=== PATIENT | male | born 1960 | race Caucasian/White ===

== ENCOUNTER 2024-05-23 18:16 | Inpatient (IN) | payer OTHER, SELFPAY ==
[2024-05-23] VITALS (9 sets, daily range): BP systolic 116–150; BP diastolic 71–90; BMI 27.1
[2024-05-23 16:19] LABS: % Basophils 0.7 % (0-2); % Immature Granulocytes 0.7 % (0-0.5); % Monocytes 7.3 % (1.7-9.3); % Neutrophils 67.3 % (42.2-75.2); Absolute Basophils 0.1 10^3/uL (0-0.2); Absolute Eosinophils 0.4 10^3/uL (0-0.7); Absolute Immature Granulocytes 0.1 10^3/uL (0-0.05); Absolute Lymphocytes 2.6 10^3/uL (1.2-3.4); Absolute Monocytes 0.9 10^3/uL (0.1-0.6); Absolute Neutrophils 8.3 10^3/uL (1.4-6.5); Hemoglobin 17.5 g/dL (13.0-18.0); Mean Corp Hgb Conc. 34.3 g/dL (33.0-37.0); Mean Platelet Volume 9.9 fL (7.4-10.4); Nucleated Red Blood Cells % 0 % (-); Platelet Count 186 10^3/uL (130-400); Red Blood Cell Count 5.31 10^6/uL (4.70-6.10); Red Cell Dist. Width 12.9 % (11.5-14.5); White Blood Cell Count 12.3 10^3/uL (4.8-10.8)
--- NOTE | 2024-05-23 16:20 | ED.GENMED ---
History of Present Illness
General
Chief Complaint: AICD Problem
Source: patient, physician and previous hospital records
Exam Limitations: none
Time Seen by Provider: 05/23/24 16:01
Nursing documentation reviewed up to this point in time: agreed with
History of Present Illness
History of Present Illness:
59 male AICD followed by Dr. Wu apparently had a shock this morning was feeling well cardiology called me prior to arrival to be expecting him there is concerned that his device wires may not be functioning appropriately, he has no chest pain
no shortness of breath, did have a change in his diabetes meds recently said no nausea vomiting or diarrhea
Past History
Past History
ED Past Medical History: Arrthythmia, HTN and NIDDM
ED Past Surgical History: Cardiac
Social History
Tobacco: Smoker
Alcohol: None
Drug: None
Personal:
Living: with family
Employment: Employed
Review of Systems
Review of Systems
All Other Systems: Not applicable
Constitutional: Denies fever
EENT: Reports no symptoms
Respiratory: Reports no symptoms
Cardiac: Reports no symptoms
ABD/GI: Reports no symptoms
: Reports no symptoms
Phy Exam
Physical Exam
Physical Exam:
Physical Exam
General: no apparent distress, not acutely ill
Neck: No jaundice
Heart: s1/s2 regular rate and rhythm, no murmur. equal radial pulses.
Lungs: no acute respiratory distress. Faint expiratory wheeze
Abdomen: Not tender
Neuro: alert and oriented. no focal neurological deficits
Skin: no rash
Psychiatric: well kept. interactive and cooperative
Extremities: no edema.
Course
Orders/Labs/Results
Orders:
Orders
05/23/24 15:40
ECG [Electrocardiogram (*1)] Urgent
Reason for Study: Abnormal EKG
Other Reason for Exam: AICD fired
05/23/24 15:41
EKG- Treatment ONCE
05/23/24 16:01
CR Chest - 2 Views Urgent
Comment:
Reason For Exam: aicd shock
05/23/24 16:12
Complete Blood Count/With Diff Urgent
Comprehensive Metabolic Panel Urgent
Magnesium Urgent
PTT Urgent
Prothrombin Time Urgent
TSH Urgent
Abnormal Lab Results
05/23/24
16:12
WBC 12.3 H 10^3/uL
(4.8-10.8)
MCV 96.0 H fL
(80.0-94.0)
MCH 33.0 H pg
(27.0-31.0)
Abs Immat Gran (auto) 0.1 H 10^3/uL
(0-0.05)
Absolute Neuts (auto) 8.3 H 10^3/uL
(1.4-6.5)
Absolute Monos (auto) 0.9 H 10^3/uL
(0.1-0.6)
Immature Gran % 0.7 H %
(0-0.5)
Glucose 220 H mg/dl
(70-99)
05/23/24 16:12
05/23/24 16:12
Vital Signs
Initial and Last Documented VS:
Initial Vital Signs
Temp Pulse Resp Pulse Ox
98.6 F 84 20 95
05/23/24 15:48 05/23/24 15:48 05/23/24 15:48 05/23/24 15:48
Last Documented Vital Signs
Temp Pulse Resp BP Pulse Ox
98.6 F 77 18 133/72 96
05/23/24 15:48 05/23/24 16:15 05/23/24 16:15 05/23/24 15:54 05/23/24 16:15
MDM/Problems Addressed
Differential Diagnosis Includes:
Arrhythmia lead fracture malfunctioning device electrolyte abdomen
MDM/Problems Addressed:
AICD
Chronic conditions affecting care: DM, Cardiomyopathy and Arrhythmia
Acute Exacerbation and/or Progression of Chronic Illness: DM, Cardiomyopathy and Arrhythmia
*Radiology
Radiology exam reviewed: preliminary read by ED provider
*Pulse Oximetry
Patient hypoxic: no
*EKG
Interpreted by ED Provider?: Yes
Interpretation: abnormal
Comparison EKG: no comparison EKG present
Heart Rate: 78
Rate: normal
Rhythm: sinus
Ischemia: non-specific ST changes
*Tufting Machine Fixer Interpretation
Rate: normal
Interpretation: normal
Heart Rate: 78
Rhythm: sinus
*Critical Care Note
Total Time (30-74mins, 75-104mins- exclusive of procedures): Not Applicable
Update Note
Update Note:
Update labs are noted device was interrogated and turned off by device rep chest x-ray pending
ED Attending Note
-
Portions of this chart may have been created with voice recognition software.� Occasional wrong word or��sound alike� substitutions may have occurred due to the inherent limitations of voice recognition software.
Discharge Plan
Departure
Patient Disposition: Admit
Date of Disposition: 05/23/24
Time of Disposition: 17:07
Admit to: Telemetry
Presentation/result/management discussed w/ accepting MD/DO: Hospitalist
Patient with high blood pressure during this ER visit?: No
Condition: Good
Discharge Problem:
Failure of implantable cardioverter-defibrillator lead
Prescriptions:
No Action
atorvastatin 40 MG tablet
40 mg PO QPM
insulin glargine [Lantus U-100 Insulin] 100 UNITS/1 ML solution
42 units SC HS
famotidine 40 MG tablet
40 mg PO DAILY
spironolactone 25 MG tablet
25 mg PO QPM
aspirin 81 MG tablet,chewable
81 mg PO DAILY
lisinopril 2.5 MG tablet
5 mg PO DAILY
ibuprofen [Advil Liqui-Gel] 200 MG capsule
200 mg PO Q6HPRN PRN (Reason: pain)
metoprolol succinate 25 MG tablet extended release 24 hr
75 mg PO DAILY
sitagliptin phosphate [Januvia] 100 MG tablet
100 mg PO DAILY
empagliflozin [Jardiance] 25 MG tablet
25 mg PO DAILY
Referrals:
Jason Patel DO [Family Provider] -
Interventions
Interventions:
*Risk Screen - Suicide Last Done: 05/23/24 15:48
*General Assessment Last Done: 05/23/24 15:48
*Neglect/Abuse Screening Last Done: 05/23/24 15:48
ED- Fall Risk Assessment Last Done: 05/23/24 16:05
*ED COVID-19 Vaccine History Last Done: 05/23/24 16:06
ED- Cardiac Assessment Last Done: 05/23/24 16:05
Discharge Date and Time
Print Language: NORTHER[place] IRISH
[2024-05-23 16:29] LABS: PT 12.5 Sec (11.4-14.6)
[2024-05-23 16:30] LABS: APTT 27.9 Sec (23.4-35.0)
[2024-05-23 16:34] LABS: ALT (SGPT) 26 U/L (0-50); AST (SGOT) 20 U/L (17-59); Albumin 4.6 g/dl (3.5-5.0); Alkaline Phosphatase 70 U/L (38-126); Blood Urea Nitrogen 15 mg/dl (9-20); Calcium 9.7 mg/dl (8.4-10.2); Carbon Dioxide 28 mmol/L (22-30); Chloride 101 mmol/L (98-107); Estimated Creatinine Clearance 88 ml/min; Glucose 220 mg/dl (70-99); Magnesium 2.1 mg/dl (1.6-2.3); Potassium 4.4 mmol/L (3.5-5.1); Sodium 137 mmol/L (135-145); Total Bilirubin 0.7 mg/dl (0.2-1.3); Total Protein 7.1 g/dl (6.3-8.2); eGFR > 60.00
--- NOTE | 2024-05-23 17:17 | HPS.HSE ---
Family Physician
-
Family Physician: Jason Patel,
Chief Complaint
-
AICD shock
History of Present Illness
59-year-old male with ischemic cardiomyopathy (LVEF 30%) due to obstructive CAD s/p PCI of LCx with other multivessel disease not amenable to PCI or CABG, HTN, NIDDM, s/p AICD that is presenting to the ED today after a shock from his AICD. Per
cardiology there is concern the device leads may not be functioning properly. Patient denied any other symptoms including chest pain, dyspnea, nausea/vomiting/diarrhea, fevers or chills, paresthesias or weakness, bleeding or bruising. Was told by
cardiology to go to the emergency department for further evaluation. Upon arrival AFVSS. ED labs showed WBC 12.3, glucose 220 but otherwise was unremarkable. ECG showed normal sinus rhythm without acute ST or T wave abnormality. Cardiology with
suspicion for AICD lead fracture.
Medical History
Past Medical History
Past Medical History: Reports CAD, CHF, HTN and NIDDM
Past Surgical History: Reports Cardiac (LCx PCI)
Social History
Tobacco: Smoker
Alcohol: None
Drug: None
Family History
Family History: Other (Denies FHx of early CHF or CAD)
Allergies / Home Medications
Allergies reflects when Allergies were last updated in [facility].
Home Medications with original date entered in [facility]
Allergy/Medication List:
Allergies
Allergy/AdvReac Type Severity Reaction Status Date / Time
No Known Allergies Allergy Verified 05/23/24 15:52
Home Medications
aspirin 81 mg chewable tablet 81 mg PO DAILY 12/27/11
atorvastatin 40 mg tablet 40 mg PO QPM 12/27/11
famotidine 40 mg tablet 40 mg PO DAILY 12/27/11
insulin glargine 100 unit/mL subcutaneous solution (Lantus U-100 Insulin) 42 units SC HS 12/27/11
lisinopril 2.5 mg tablet 5 mg PO DAILY 12/27/11
spironolactone 25 mg tablet 25 mg PO QPM 12/27/11
empagliflozin 25 mg tablet (Jardiance) 25 mg PO DAILY 07/06/20
ibuprofen 200 mg capsule (Advil Liqui-Gel) 200 mg PO Q6HPRN PRN pain 07/06/20
metoprolol succinate 25 mg tablet,extended release 24 hr 75 mg PO DAILY 07/06/20
sitagliptin phosphate 100 mg tablet (Januvia) 100 mg PO DAILY 07/06/20
Review of Systems
-
History Source: Patient
A 12 point ROS was completed and negative except as noted: Yes
Constitutional: Reports No Symptoms
EENT: Reports No Symptoms
Respiratory: Reports No Symptoms
Cardiac: Reports No Symptoms
Abdomen/GI: Reports No Symptoms
: Reports No Symptoms
Musculoskeletal: Reports No Symptoms
Skin: Reports No Symptoms
Neurological: Reports No Symptoms
Endocrine: Reports No Symptoms
Hematologic/Lymphatic: Reports No Symptoms
Psych: Reports No Symptoms
Physical Exam
Vital Signs
Vital Signs
Temp Pulse Resp BP Pulse Ox
98.6 F 77 18 133/72 96
05/23/24 15:48 05/23/24 16:15 05/23/24 16:15 05/23/24 15:54 05/23/24 16:15
Physical Exam
General: Well Developed, Well Nourished, No Apparent Distress and Comfortable
HEENT: NormoCephalic, Anicteric, Moist mucous membranes, Atraumatic and PERRLA
Respiratory: Clear and Non Labored Respirations; No Wheezes, Rales or Rhonchi
Cardiac: S1/S2 and Regular Rhythm; No Murmur, Rub, Gallop, Peripheral Edema or JVD
GI: Soft, Non Tender, Non Distended and Normal Bowel Sounds
Musculoskeletal: No Clubbing and No Cyanosis
Skin: Warm and Dry; No Rash
Neuro: AO x 3 and Nonfocal/grossly intact
Psych: Calm
Laboratory Results
-
05/23/24 16:12
05/23/24 16:12
Laboratory Results
PT 12.5 Sec (11.4-14.6) 05/23/24 16:12
INR 0.90 05/23/24 16:12
APTT 27.9 Sec (23.4-35.0) 05/23/24 16:12
Total Bilirubin 0.7 mg/dl (0.2-1.3) 05/23/24 16:12
AST 20 U/L (17-59) 05/23/24 16:12
ALT 26 U/L (0-50) 05/23/24 16:12
Alkaline Phosphatase 70 U/L (38-126) 05/23/24 16:12
Data Reviewed
-
Lab Data: Labs Reviewed by me, Discussed with Physician (Cardiology) and Discussed with Patient
Impression/Plan
-
#Inappropriate AICD shock
#Suspicion for fractured lead of AICD
-Will underlying rhythms that would necessitate AICD discharge, such as VT/VF
-Cardiology reviewed tracings, suspicion for lead fracture as etiology for inappropriate shock
-Upon arrival no significant metabolic abnormalities that would be contributing
-Will admit to IVU, cardiology/electrophysiology consulted
-Device was turned off by retail service technician, monitor on telemetry for now
-Maintain ZOLL pads for now
-Order CXR, follow-up TSH
#Leukocytosis
-Unclear cause, likely reactive from AICD discharge
-No fevers, no other obvious infectious etiology
-Monitor for fevers, follow-up CXR
-No indication for antibiotics as of now
-Trend CBC and monitor vitals
#HFrEF
#CAD s/p LCx PCI
#Multivessel CAD not amenable to PCI or CABG
-Ischemic cardiomyopathy with most recent LVEF 30%
-Home GDMT includes ASA, statin, ACEi, MRA, beta-daphney, SGLT2i
-Mechanical GDMT with AICD for persistent LVEF <35%
-Not currently on any standing loop diuretic regimen
-Appears euvolemic as of now
#IDDM with hyperglycemia
-No recent A1c on file, Home medications include Lantus 42 units nightly, sitagliptin and empagliflozin
-No known microvascular complications; suspect CAD history is related
-Will continue home medications and add ISS with Accu-Cheks
-Blood glucose goal 100-200, avoid hypoglycemia
#Hypertension
-Home medications include GDMT for heart failure as above
-No known hypertensive systemic disease
-May be related with CAD history
DVT prophylaxis: Subcutaneous heparin
Diet: Low-cholesterol
CODE STATUS: Full code
Disposition: IVU
[2024-05-23 17:25] LABS: TSH 0.46 uIU/ml (0.47-4.68)
[2024-05-23 22:11] LABS: Troponin I 0.054 ng/ml
[2024-05-23] MEDS: LIPITOR 40 MG PO (22:51)
[2024-05-23] MEDS: ALDACTONE 25 MG PO (22:51)
[2024-05-23 22:57] LABS: Glucose - Point of Care 230 mg/dl (70-99)
[2024-05-23] MEDS: LANTUS 0.3 UNITS SC (23:25)
[2024-05-23] MEDS: HEPARIN 5000 UNITS SC (23:29)
--- NOTE | 2024-05-24 01:39 | PTCARENOTE ---
Received pt from ED. SR on the monitor, HR in the 70s. VSS. Pacer pads on pt as per order. Notified SEPARATOR TENDER of elevated troponin level. No complaints from pt at this time, call looney within reach.
[2024-05-24 04:27] VITALS: BP 140/70
[2024-05-24 04:54] LABS: % Basophils 0.7 % (0-2); % Eosinophils 4.4 % (0-6); % Immature Granulocytes 0.7 % (0-0.5); % Lymphocytes 28.2 % (20.5-51.1); % Monocytes 9.1 % (1.7-9.3); % Neutrophils 56.9 % (42.2-75.2); Absolute Basophils 0.1 10^3/uL (0-0.2); Absolute Eosinophils 0.6 10^3/uL (0-0.7); Absolute Immature Granulocytes 0.1 10^3/uL (0-0.05); Absolute Lymphocytes 3.8 10^3/uL (1.2-3.4); Absolute Monocytes 1.2 10^3/uL (0.1-0.6); Absolute Neutrophils 7.6 10^3/uL (1.4-6.5); Hemoglobin 17.3 g/dL (13.0-18.0); Mean Corp Hgb Conc. 34.6 g/dL (33.0-37.0); Mean Corpuscular Hgb 33.4 pg (27.0-31.0); Mean Corpuscular Volume 96.5 fL (80.0-94.0); Mean Platelet Volume 10.3 fL (7.4-10.4); Nucleated Red Blood Cells % 0 % (-); Platelet Count 176 10^3/uL (130-400); Red Blood Cell Count 5.18 10^6/uL (4.70-6.10); White Blood Cell Count 13.4 10^3/uL (4.8-10.8)
[2024-05-24 05:18] LABS: Blood Urea Nitrogen 16 mg/dl (9-20); Calcium 9.6 mg/dl (8.4-10.2); Carbon Dioxide 20 mmol/L (22-30); Chloride 105 mmol/L (98-107); Estimated Creatinine Clearance 99 ml/min; Glucose 147 mg/dl (70-99); Magnesium 2.2 mg/dl (1.6-2.3); Potassium 4.5 mmol/L (3.5-5.1); Sodium 137 mmol/L (135-145); eGFR > 60.00
[2024-05-24 05:21] LABS: Troponin I 0.031 ng/ml
[2024-05-24 06:00] VITALS: BMI 26.8
[2024-05-24 07:56] VITALS: BP 142/83
[2024-05-24 08:42] LABS: Glucose - Point of Care 126 mg/dl (70-99)
[2024-05-24] MEDS: LOW STRENGTH ASPIRIN 81 MG PO (09:00)
[2024-05-24] MEDS: HEPARIN 5000 UNITS SC ×3 (09:00→22:27)
[2024-05-24] MEDS: TOPROL XL 75 MG PO (09:00)
[2024-05-24] MEDS: PEPCID 40 MG PO (09:00)
[2024-05-24] MEDS: ZESTRIL 5 MG PO (09:01)
[2024-05-24] MEDS: GLUCOTROL 10 MG PO ×2 (09:01→17:56)
[2024-05-24] MEDS: FARXIGA 25 MG PO (09:04)
--- NOTE | 2024-05-24 10:50 | W.PN.HOSP.TC ---
Today's Communication/Plan
-
Maintain ZOLL pads
Repair/replacement of AICD per cardiology
Telemetry
Assessment / Plan
Assessment / Plan
#Inappropriate AICD shock
#Suspicion for fractured lead of AICD
-Will underlying rhythms that would necessitate AICD discharge, such as VT/VF
-Cardiology reviewed tracings, suspicion for lead fracture as etiology for inappropriate shock
-Upon arrival no significant metabolic abnormalities that would be contributing
-Will admit to IVU, cardiology/electrophysiology consulted
-Device was turned off by maintenance technician 2nd shift, monitor on telemetry for now
-Maintain ZOLL pads for now
-Order CXR, follow-up TSH
-Will need repair versus replacement of a AICD
#Leukocytosis
-Unclear cause, likely reactive from AICD discharge
-No fevers, no other obvious infectious etiology
-Monitor for fevers, follow-up CXR
-No indication for antibiotics as of now
-Trend CBC and monitor vitals
#HFrEF
#CAD s/p LCx PCI
#Multivessel CAD not amenable to PCI or CABG
-Ischemic cardiomyopathy with most recent LVEF 30%
-Home GDMT includes ASA, statin, ACEi, MRA, beta-daphney, SGLT2i
-Mechanical GDMT with AICD for persistent LVEF <35%
-Not currently on any standing loop diuretic regimen
-Appears euvolemic as of now
#IDDM with hyperglycemia
-No recent A1c on file, Home medications include Lantus 42 units nightly, sitagliptin and empagliflozin
-No known microvascular complications; suspect CAD history is related
-Will continue home medications and add ISS with Accu-Cheks
-Blood glucose goal 100-200, avoid hypoglycemia
#Hypertension
-Home medications include GDMT for heart failure as above
-No known hypertensive systemic disease
-May be related with CAD history
DVT prophylaxis: Subcutaneous heparin
Diet: Low-cholesterol
CODE STATUS: Full code
Anticipated Discharge: 24 - 48 hours
Subjective/Interval History
-
Date of Service: May 24, 2024
Seen and examined at bedside. No acute events reported overnight. No acute events per telemetry. AFVSS this morning.
Labs stable, remains with mild leukocytosis. No fevers overnight.
Denies any acute complaints
Objective Data
-
Labs:
Laboratory Results
05/24/24
04:35
WBC 13.4 H
Hgb 17.3
Hct 50.0
Plt Count 176
Sodium 137
Potassium 4.5
Chloride 105
Carbon Dioxide 20 L
BUN 16
Creatinine 0.8
Glucose 147 H
Calcium 9.6
Vital Signs:
Vital Signs
Temp Pulse Resp BP Pulse Ox
98.3 F 78 20 142/83 96
05/24/24 07:54 05/24/24 09:00 05/24/24 07:54 05/24/24 09:00 05/24/24 07:54
Review of Systems
-
History Source: Patient
All other systems: Reviewed and negative
Physical Exam
-
General: Well Developed, Well Nourished, No Apparent Distress and Comfortable
HEENT: Normocephalic, Atraumatic, Moist Mucous Membranes and Anicteric
Respiratory: Clear to Auscultation and Non Labored Respirations
Cardiac: Regular Rhythm and S1/S2; Negative Murmur, Rub, JVD or Gallop
GI: Soft, Nontender, Nondistended and Normal Bowel Sounds
Musculoskeletal: No Clubbing, No Cyanosis, No Edema and Normal Gait & Station
Skin: Warm, Dry and Normal Turgor; Negative Rash
Neuro: AO x 3 and Nonfocal/Grossly Intact
Psych: Calm
Data Reviewed
-
Diagnostic Radiology: Discussed with Physician (Employee Communications Coordinator)
Labs: Labs Reviewed by me and Discussed with Patient
[2024-05-24 11:12] VITALS: BP 102/77
[2024-05-24 13:10] LABS: Glucose - Point of Care 101 mg/dl (70-99)
[2024-05-24 15:34] VITALS: BP 107/71
--- NOTE | 2024-05-24 16:50 | PTCARENOTE ---
pt continues to be sr on the monitor, hr in the 70s, vss. pt offers no complaints at this time. pt educated on plan of care and pt verbalized understanding. call looney within reach.
[2024-05-24 17:35] LABS: Glucose - Point of Care 135 mg/dl (70-99)
[2024-05-24] MEDS: ALDACTONE 25 MG PO (17:56)
[2024-05-24] MEDS: LIPITOR 40 MG PO (17:56)
--- NOTE | 2024-05-24 18:14 | CON.CAR ---
Consultation
Consultation Request
Requesting Provider: Rodrick
Performing Provider: Consuelo
Reason for Consultation: ICD Shock
Medical History
-
Chief Complaint: ICD Shock
History of Present Illness:
Patient is a very pleasant 63-year-old male with a past medical history significant for diabetes mellitus type 2, CAD status post PCI 2011, ischemic cardiomyopathy (with recovered EF) status post single-chamber Biotronik ICD implant 2011 with
generator change June 2020 who presents following ICD shock. In review of patient's device interrogation by [employer], patient was noted to have significant noise on RV lead leading to inappropriate shock. In emergency department, device was
interrogated remotely and tacky therapies were discontinued. Patient performed isometric and motion exercises with the left arm and when arm was raised, noise was reproduced. In discussion with patient, he reports that he was in otherwise good
state of health. Patient denies any episodes of chest pain, shortness of breath, palpitations, lightheadedness, dizziness, near-syncope, syncope, PND, orthopnea, edema, weakness. Patient has not received an appropriate device therapy from his
device. No reported tachyarrhythmias from device interrogation.
Past Medical History
Past Medical History: Other (See HPI)
Past Surgical History: Other (See HPI)
Social History
Tobacco: Smoker
Alcohol: Occasional
Drug: None
Family History
Family History: Reviewed & Not Pertinent
Allergies / Home Medications
Allergy/AdvReac Type Severity Reaction Status Date / Time
No Known Allergies Allergy Verified 05/23/24 15:52
�Medication �Instructions �Recorded �Confirmed �Type
aspirin 81 mg chewable tablet 81 mg PO DAILY 12/27/11 05/23/24 History
atorvastatin 40 mg tablet 40 mg PO QPM 12/27/11 05/23/24 History
famotidine 40 mg tablet 40 mg PO DAILY 12/27/11 05/23/24 History
insulin glargine 100 unit/mL 30 units SC HS 12/27/11 05/23/24 History
subcutaneous solution (Lantus
U-100 Insulin)
lisinopril 2.5 mg tablet 5 mg PO DAILY 12/27/11 05/23/24 History
spironolactone 25 mg tablet 25 mg PO QPM 12/27/11 05/23/24 History
empagliflozin 25 mg tablet 25 mg PO DAILY 07/06/20 05/23/24 History
(Jardiance)
ibuprofen 200 mg capsule (Advil 200 mg PO Q6HPRN PRN pain 07/06/20 05/23/24 History
Liqui-Gel)
metoprolol succinate 25 mg 75 mg PO DAILY 07/06/20 05/23/24 History
tablet,extended release 24 hr
glipizide 10 mg tablet 10 mg PO BID@0800,1700 05/23/24 05/23/24 History
Review of Systems
-
History Source: Patient
All other systems: Negative unless noted
Constitutional: No Symptoms
EENT: No Symptoms
Respiratory: No Symptoms
Cardiac: No Symptoms
Abdomen/GI: No Symptoms
: No Symptoms
Musculoskeletal: No Symptoms
Skin: No Symptoms
Neurological: No Symptoms
Endocrine: No Symptoms
Hematologic/Lymphatic: No Symptoms
Physical Exam
Vital Signs
Temp Pulse Resp BP Pulse Ox
97.3 F 87 20 107/71 97
05/24/24 15:31 05/24/24 17:56 05/24/24 15:31 05/24/24 17:56 05/24/24 15:31
physical exam:
GENERAL: no acute distress
EYE: sclera anicteric
NECK: Supple, no JVD, no carotid bruit appreciated
ENT: normal nose, moist mucosal membranes
CARDIAC: Regular rate and rhythm, +S1/S2, no murmur, rubs, or gallops; left CIED site well-healed no erythema, redness, warmth, swelling
CHEST/PULMONARY: Normal effort, clear breath sounds
ABDOMEN: Soft, without focal tenderness or distention
NEUROLOGICAL: Alert and oriented x3
SKIN: Warm and dry, no rash
PSYCH: Normal and appropriate interaction.
Lab Results
05/24/24 04:35
05/24/24 04:35
Troponin I 0.031 ng/ml D 05/24/24 04:35
Impression / Plan
-
PCP: Jason Patel DO
Cardiology: Darinel Wu MD
Assessment:
ICD shock, inappropriate
� Noted lead noise prior to device therapy
� Lead impedance greater than 3000
� Reproduced with arm motion; no reported trauma, significant activity or exertion
ICM status post single-chamber ICD 2011
� Biotronik Ilivia 7 VR-T (implant 2020) with Linox DF1 Lead (8 Fr, dual coil; implant 2011)
� No prior device therapies or ventricular arrhythmias reported
� Prior EF 30%, recent echocardiogram from primary director of photography reports EF 50%, basal/mid inferior wall, basal/mid inferolateral wall, basal inferoseptal segment and apex abnormal wall motion
CAD status post PCI
Diabetes mellitus type 2
Hypertension
TTE 06/11/2023: EF 50%, concentric remodeling LV, normal RV size and function, no significant valvular disease, basal/mid inferior wall, basal/mid inferolateral wall, basal inferoseptal segment, and apex are abnormal
Recommendations:
� Device tachytherapies turned off remotely in emergency department, ZOLL pads placed on patient.
� Continue current medical therapy with aspirin, statin, LETICIA, Aldactone, Jardiance, beta-daphney
� Given that patient has ischemic cardiomyopathy despite recovered EF but known regional wall motion abnormality along with relatively young age, I believe patient would benefit from extraction and reimplantation. I discussed this with patient's
primary director of photography, Dr. Wu, who agreed with this plan. With this in mind, we will plan to fit patient with wearable defibrillator (LifeVest) with plan for evaluation on extraction and reimplantation. Will refer patient to my colleague
Terrell for evaluation.
� Monitor on telemetry, replete electrolytes
Data Reviewed
-
EKG: Tracing Personally Visualized and interpreted
Radiology: Image Personally Visualized and interpreted and Report Reviewed by me
Medical Tests (Nuc Med, Echo etc): Report Reviewed by me
Labs: Labs Reviewed by me
Old Records: Reviewed
[2024-05-24 19:42] VITALS: BP 107/70
[2024-05-24 20:54] LABS: Glucose - Point of Care 147 mg/dl (70-99)
[2024-05-24] MEDS: LANTUS 0.3 UNITS SC (22:26)
[2024-05-24 22:27] VITALS: BP 121/72
[2024-05-25] VITALS (10 sets, daily range): BP systolic 97–127; BP diastolic 64–83; BMI 26.7
--- NOTE | 2024-05-25 02:45 | PTCARENOTE ---
received patient at the change of shift. AAOx3. denies any cp/sob. independent in the room. SR on tele. bp stable. zoll pads on patient. reviewed plan of care with patient and verbalized understanding. call looney within reach. makes needs known.
[2024-05-25 05:15] LABS: % Basophils 0.6 % (0-2); % Eosinophils 4.5 % (0-6); % Immature Granulocytes 0.8 % (0-0.5); % Lymphocytes 36.8 % (20.5-51.1); % Monocytes 8.3 % (1.7-9.3); Absolute Basophils 0.1 10^3/uL (0-0.2); Absolute Eosinophils 0.6 10^3/uL (0-0.7); Absolute Immature Granulocytes 0.1 10^3/uL (0-0.05); Absolute Lymphocytes 4.8 10^3/uL (1.2-3.4); Absolute Monocytes 1.1 10^3/uL (0.1-0.6); Absolute Neutrophils 6.3 10^3/uL (1.4-6.5); Hematocrit 51.4 % (39.0-52.0); Hemoglobin 17.7 g/dL (13.0-18.0); Mean Corp Hgb Conc. 34.4 g/dL (33.0-37.0); Mean Corpuscular Volume 95.9 fL (80.0-94.0); Mean Platelet Volume 10.8 fL (7.4-10.4); Nucleated Red Blood Cells % 0 % (-); Platelet Count 176 10^3/uL (130-400); Red Blood Cell Count 5.36 10^6/uL (4.70-6.10); Red Cell Dist. Width 12.9 % (11.5-14.5); White Blood Cell Count 12.9 10^3/uL (4.8-10.8)
[2024-05-25 05:33] LABS: Blood Urea Nitrogen 19 mg/dl (9-20); Calcium 9.2 mg/dl (8.4-10.2); Carbon Dioxide 22 mmol/L (22-30); Chloride 103 mmol/L (98-107); Estimated Creatinine Clearance 99 ml/min; Glucose 85 mg/dl (70-99); Magnesium 2.2 mg/dl (1.6-2.3); Potassium 4.4 mmol/L (3.5-5.1); Sodium 136 mmol/L (135-145); eGFR > 60.00
[2024-05-25 07:53] LABS: Glucose - Point of Care 95 mg/dl (70-99)
[2024-05-25] MEDS: TOPROL XL 75 MG PO (08:17)
[2024-05-25] MEDS: FARXIGA 25 MG PO (08:18)
[2024-05-25] MEDS: LOW STRENGTH ASPIRIN 81 MG PO (08:19)
[2024-05-25] MEDS: ZESTRIL 5 MG PO (08:19)
[2024-05-25] MEDS: HEPARIN 5000 UNITS SC (08:19)
[2024-05-25] MEDS: GLUCOTROL 10 MG PO ×2 (08:19→17:40)
[2024-05-25] MEDS: PEPCID 40 MG PO (08:19)
--- NOTE | 2024-05-25 10:28 | W.PN.CARDCBS ---
Addendum entered and electronically signed by Adeel Cramer MD 05/25/24 14:11:
Patient seen, interviewed and examined by me.
Well-appearing, no acute distress
Regular rate and rhythm with normal S1 and S2, no S3 no S4. There is a grade 1/6 apical holosystolic murmur and no rubs. PMI is normally placed.
Lungs are clear to auscultation bilaterally without wheezes rales or rhonchi.
Abdomen soft nontender nondistended with normoactive bowel sounds
Extremities show trace pretibial edema bilaterally no clubbing or cyanosis.
Neurologic exam is grossly nonfocal.
Discussed with patient.
While LV systolic function has near normalized, he continues to have multiple segmental wall motion abnormalities based on infarct related cardiomyopathy and therefore likely continues to represent high risk of sudden cardiac . Would be safest
for him to have a functioning ICD system.
We discussed the possibility of moving directly towards lead extraction or considering placing a new ICD lead and capping the old lead as long as there is venous patency. He prefers the latter option.
Will plan for venogram today and if there is patency of the central venous system on the left side, we will attempt placement of a new lead. If this cannot be successfully placed or if there is venous obstruction, will plan for LifeVest and return
for planned lead extraction and implantation of a new system.
We discussed possible risks.
I have answered all of his questions.
Original Note:
Today's Communication / Plan
-
-determine if pt candidate for LV lead revision
-Lifevest to bridge until new ICD placed
Impression / Plan
-
PCP: Jason Patel DO
Cardiology: Darinel Wu MD
Assessment:
ICD shock, inappropriate
� Noted lead noise prior to device therapy
� Lead impedance greater than 3000
� Reproduced with arm motion; no reported trauma, significant activity or exertion
ICM status post single-chamber ICD 2011
� Biotronik Ilivia 7 VR-T (implant 2020) with Linox DF1 Lead (8 Fr, dual coil; implant 2011)
� No prior device therapies or ventricular arrhythmias reported
� Prior EF 30%, recent echocardiogram from primary plastic jig and fixture builder reports EF 50%, basal/mid inferior wall, basal/mid inferolateral wall, basal inferoseptal segment and apex abnormal wall motion
CAD status post PCI
Diabetes mellitus type 2
Hypertension
TTE 06/11/2023: EF 50%, concentric remodeling LV, normal RV size and function, no significant valvular disease, basal/mid inferior wall, basal/mid inferolateral wall, basal inferoseptal segment, and apex are abnormal
Recommendations:
� Device tachytherapies turned off remotely in emergency department, ZOLL pads placed on patient.
� Continue current medical therapy with aspirin, statin, LETICIA, Aldactone, Jardiance, beta-daphney
� Given that patient has ischemic cardiomyopathy despite recovered EF but known regional wall motion abnormality along with relatively young age, I believe patient would benefit from extraction and reimplantation. I discussed this with patient's
primary plastic jig and fixture builder, Dr. Wu, who agreed with this plan. With this in mind, we will plan to fit patient with wearable defibrillator (LifeVest) with plan for evaluation on extraction and reimplantation. Will refer patient to my colleague
Terrlel for evaluation.
� telemetry personally reviewed: NSR, one 13 beat NSVT
-K 4.4, Mag 2.2
Progress Note - Steel Construction Worker
Subjective
Date of Service: May 25, 2024
-no complaints
-had 13 beat NSVT on telemetry-asymptomatic
-ICD therapies remain off
Objective
Labs:
05/25/24 04:39
05/25/24 04:39
Labs
Hgb 17.7 g/dL (13.0-18.0) 05/25/24 04:39
Hct 51.4 % (39.0-52.0) 05/25/24 04:39
Plt Count 176 10^3/uL (130-400) 05/25/24 04:39
PT 12.5 Sec (11.4-14.6) 05/23/24 16:12
INR 0.90 05/23/24 16:12
APTT 27.9 Sec (23.4-35.0) 05/23/24 16:12
Sodium 136 mmol/L (135-145) 05/25/24 04:39
Potassium 4.4 mmol/L (3.5-5.1) 05/25/24 04:39
BUN 19 mg/dl (9-20) 05/25/24 04:39
Creatinine 0.8 mg/dL (0.7-1.3) 05/25/24 04:39
Glucose 85 mg/dl (70-99) 05/25/24 04:39
Troponins
05/23/24 05/24/24 05/24/24
21:20 04:35 12:38
Troponin I 0.054 H* 0.031 D Cancelled
Vital Signs and I&O:
Vital Signs
Temp Pulse Resp BP Pulse Ox
98.3 F 79 20 110/69 95
05/25/24 07:10 05/25/24 08:17 05/25/24 07:10 05/25/24 08:17 05/25/24 07:10
Vital Signs
Temp Pulse Resp BP Pulse Ox
98.3 F 79 20 110/69 95
05/25/24 07:10 05/25/24 08:17 05/25/24 07:10 05/25/24 08:17 05/25/24 07:10
Intake & Output
05/23/24 05/24/24 05/25/24 05/26/24
06:59 06:59 06:59 06:59
Intake Total 880 / 880
Balance 880 / 880
Physical Exam
Physical Exam
GEN: No distress, awake, Ox3
HEENT: supple, anicteric, mmm
LUNGS: CTA, no wheezes/rales
CV: Reg, S1/S2, no murmur
ABD: soft, BS+, NT/ND
EXT: No edema
NEURO: Gross non-focal
SKIN: No rash
[2024-05-25 12:54] LABS: Glucose - Point of Care 128 mg/dl (70-99)
--- NOTE | 2024-05-25 14:31 | PTCARENOTE ---
cleaned patients L chest wall with CHG wipes. #20 g IV present and patent.
--- NOTE | 2024-05-25 14:58 | PTCARENOTE ---
report given to cardiac catheterization technologist RN. taken in bed for ICD
[2024-05-25] MEDS: HEPARIN SC (15:12)
--- NOTE | 2024-05-25 15:32 | W.PN.HOSP.TC ---
Today's Communication/Plan
-
venogram today
ac - q4h while npo monitoring glucose
add on free 4, [id number]
Assessment / Plan
Assessment / Plan
#Inappropriate AICD shock
#Suspicion for fractured lead of AICD
-Will underlying rhythms that would necessitate AICD discharge, such as VT/VF
-Cardiology reviewed tracings, suspicion for lead fracture as etiology for inappropriate shock=
-Device was turned off by roofing technician, monitor on telemetry for now
-Maintain ZOLL pads for now
-considering placing a new ICD lead and capping the old lead as long as there is venous patency
-Venogram today
#Leukocytosis
-Unclear cause, likely reactive from AICD discharge
-No fevers, no other obvious infectious etiology
-Monitor for fevers, follow-up CXR
-No indication for antibiotics as of now
-Trend CBC and monitor vitals
#HFrEF
#CAD s/p LCx PCI
#Multivessel CAD not amenable to PCI or CABG
-Ischemic cardiomyopathy with most recent LVEF 30%
-Home GDMT includes ASA, statin, ACEi, MRA, beta-daphney, SGLT2i
-Mechanical GDMT with AICD for persistent LVEF <35%
-Not currently on any standing loop diuretic regimen
-Appears euvolemic as of now
#IDDM with hyperglycemia
-No recent A1c on file, Home medications include Lantus 42 units nightly, sitagliptin and empagliflozin
-No known microvascular complications; suspect CAD history is related
-Will continue home medications and add ISS with Accu-Cheks
-Blood glucose goal 100-200, avoid hypoglycemia]
-f/u hgba1c
#Hypertension
-Home medications include GDMT for heart failure as above
-No known hypertensive systemic disease
-May be related with CAD history
DVT prophylaxis: Subcutaneous heparin
Diet: Low-cholesterol
CODE STATUS: Full code
Anticipated Discharge: 24 - 48 hours
Subjective/Interval History
-
Date of Service: May 25, 2024
no acute events
Objective Data
-
Labs:
Laboratory Results
05/25/24
04:39
WBC 12.9 H
Hgb 17.7
Hct 51.4
Plt Count 176
Sodium 136
Potassium 4.4
Chloride 103
Carbon Dioxide 22
BUN 19
Creatinine 0.8
Glucose 85
Calcium 9.2
Vital Signs:
Vital Signs
Temp Pulse Resp BP Pulse Ox
97.5 F 68 20 97/64 97
05/25/24 11:59 05/25/24 14:15 05/25/24 11:59 05/25/24 11:59 05/25/24 11:59
I&O
05/24/24 05/25/24 05/26/24
06:59 06:59 06:59
Intake Total 880 / 880
Balance 880 / 880
Review of Systems
-
History Source: Patient
All other systems: Not reviewed unless documented
Data Reviewed
-
Diagnostic Radiology: Report Reviewed by me
Labs: Labs Reviewed by me and Discussed with Patient
[2024-05-25 16:46] LABS: Free T4 1.44 ng/dl (0.78-2.19)
--- NOTE | 2024-05-25 16:55 | ITS.CL.ICD ---
Talent Sourcing Specialist - ICD
Implantable Cardioverter Defibrillator
Procedure Report:
ICD IMPLANTATION REPORT
Date of Procedure: May 25, 2024
PCP: Jason Patel DO
Cardiology: Darinel Wu MD
PROCEDURES:
- Abandoning of failed right ventricular defibrillator/pacing lead
- Removal of ICD generator
- Implantation of new ICD generator with new ICD lead
HISTORY:
He has previously undergone ICD implantation for primary prevention of sudden cardiac related to infarct cardiomyopathy and heart failure.
Current [place] heart association class III. LV function has improved but not normalized and there remains multiple segmental wall motion abnormalities.
He received ICD shock and interrogation of the device finds likely lead fracture.
He presents now for attempted placement of a new ICD lead and generator.
Life expectancy > 1 year
Lidocaine with epi was used for local anesthesia. For central venous access was obtained after venogram demonstrated patency but some stenosis of the left central venous system at the subclavian vein. Central venous access was successfully
obtained then an incision was made over the previous incision to enter the ICD pocket and dissected towards the transcutaneously placed central venous system guidewire. Once this was successfully accomplished, a modified Seldinger technique was
utilized to place a 9 Wolof peel-away sheath. Using a Seldinger technique and peel-away sheaths, the pacing leads were placed under fluoroscopic guidance.
The abandoned right ventricular defibrillator lead was capped.
The ICD generator that was previously placed and has declining battery longevity as well as a device recall alert was removed. The new ICD lead was attached to the new ICD generator
Once testing (see below) showed adequate and stable function, the leads were secured using the suture sleeves. The pocket was liberally irrigated with antibiotic solution. The leads were connected to the generator header and the leads and
generator were placed within the pocket. Fluoroscopy confirmed stable lead position. The pocket was closed in the typical fashion.
IMPLANTS:
ICD Biotronik Acticor 7 VR-T DX serial #[id number]
RV Biotronik Pamira S DX 65/15 serial #[id number]
ABANDONED:
Biotronik Lumax Smart SD 60/16 originally implanted December 28, 2011
DEVICE TESTING:
Sensing: RA 2.6 mV, RV 6 mV
Capture: RV 0.5 V@0.5ms
Ohms: RV 580
FINAL PROGRAMMING:
Bronson Pacing: VDI 40 ppm
Tachy parameters:
VF: 222 bpm. ATP X1, Shock
VT: 194 bpm. ATP X 3, Shock
COMPLICATIONS:
None
CONCLUSIONS:
- Abandoning of failed right ventricular defibrillator/pacing lead
- Removal of ICD generator
- Implantation of new ICD generator with new ICD lead
RECOMMENDATIONS:
Post op care (tele, CXR, IV abx).
In-Office wound check in 5-7 days.
Copy to:
PCP: Jason Patel DO
Cardiology: Darinel Wu MD
[2024-05-25] MEDS: ALDACTONE 25 MG PO (17:40)
[2024-05-25] MEDS: LIPITOR 40 MG PO (17:40)
[2024-05-25 17:43] LABS: Glucose - Point of Care 94 mg/dl (70-99)
--- NOTE | 2024-05-25 18:01 | CM ---
spoke to pt in room, he is prev indep, lives alone in an apt with 10 steps to enete. he denies any dc planning needs or dme's. plan is for dc to home when medically stable.
[2024-05-25] MEDS: TYLENOL 650 MG PO (19:43)
--- NOTE | 2024-05-25 20:07 | PTCARENOTE ---
assumed care of patient at the change of shift. post ICD implant. resting in bed. complaining of mild discomfort at surgical site/shoulder-Tylenol given, see aug. L chest site intact. pressure dressing/Left arm immobilizer. reviewed activity
restrictions and verbalized understanding. SR on tele 60s. bp stable. educated to inform RN with any changes. call looney within reach.
chest xray completed. tolerated.
[2024-05-25 22:16] LABS: Glucose - Point of Care 265 mg/dl (70-99)
[2024-05-25] MEDS: ANCEF 5 IV (22:19)
[2024-05-25] MEDS: LANTUS 0.3 UNITS SC (22:20)
[2024-05-26] MEDS: HEPARIN SC (01:32)
[2024-05-26 03:41] VITALS: BP 122/82
[2024-05-26 05:06] LABS: Hemoglobin 17.9 g/dL (13.0-18.0); Mean Corp Hgb Conc. 35.1 g/dL (33.0-37.0); Mean Corpuscular Hgb 33.3 pg (27.0-31.0); Mean Corpuscular Volume 94.8 fL (80.0-94.0); Mean Platelet Volume 10.8 fL (7.4-10.4); Platelet Count 167 10^3/uL (130-400); Red Blood Cell Count 5.38 10^6/uL (4.70-6.10); Red Cell Dist. Width 12.7 % (11.5-14.5); White Blood Cell Count 14.9 10^3/uL (4.8-10.8)
[2024-05-26] MEDS: ANCEF 5 IV (05:47)
[2024-05-26 06:00] VITALS: BMI 26.6
[2024-05-26 06:58] LABS: ALT (SGPT) 27 U/L (0-50); AST (SGOT) 25 U/L (17-59); Albumin 4.6 g/dl (3.5-5.0); Alkaline Phosphatase 78 U/L (38-126); Blood Urea Nitrogen 22 mg/dl (9-20); Calcium 9.5 mg/dl (8.4-10.2); Carbon Dioxide 20 mmol/L (22-30); Chloride 101 mmol/L (98-107); Estimated Creatinine Clearance 99 ml/min; Glucose 112 mg/dl (70-99); Potassium 4.9 mmol/L (3.5-5.1); Sodium 135 mmol/L (135-145); Total Bilirubin 0.9 mg/dl (0.2-1.3); Total Protein 7.2 g/dl (6.3-8.2); eGFR > 60.00
[2024-05-26 07:01] VITALS: BP 127/69
[2024-05-26 07:04] LABS: Glucose - Point of Care 124 mg/dl (70-99)
--- NOTE | 2024-05-26 08:00 | PTCARENOTE ---
assumed care of patient from prev RN. SR. HR 60-70s. remains with arm immobilizer, pressure dressing on. independent in care. VSS stable. hopeful d/c this afternoon. will continue to monitor.
[2024-05-26 08:39] LABS: Glycohemoglobin (HgbA1c) 7.6 % (4.0-5.6)
[2024-05-26] MEDS: TOPROL XL 75 MG PO (09:19)
[2024-05-26] MEDS: PEPCID 40 MG PO (09:21)
[2024-05-26] MEDS: LOW STRENGTH ASPIRIN 81 MG PO (09:21)
[2024-05-26] MEDS: FARXIGA 25 MG PO (09:21)
[2024-05-26] MEDS: GLUCOTROL 10 MG PO (09:22)
[2024-05-26] MEDS: ZESTRIL 5 MG PO (09:22)
[2024-05-26] MEDS: HEPARIN 5000 UNITS SC (09:24)
[2024-05-26 11:29] VITALS: BP 132/72
--- NOTE | 2024-05-26 11:50 | W.PN.CARDCBS ---
Addendum entered and electronically signed by Mitchel Dumont MD 05/26/24 13:50:
patient seen and examined
agree with SOHA Zayas's notes and assessment
agree with SOHA Zayas's plan
exam:
site cdi
cor regular
lungs ctab
abd soft nt nd
no ext edema
aao x 3
non focal neurologically
PCP: Jason Patel, DO
Cardiology: Darinel Wu MD
Beef Pluck Trimmer: Adeel Cramer
Assessment:
Ischemic cardiomyopathy
Biotronik Ilivia 7 VR-T (implant 2020) with Linox DF1 Lead (8 Fr, dual coil; implant 2011)
s/p gen change with ICD Biotronik Acticor 7 VR-T and RV Biotronik Pamira S DX 65/15 05/25/2024
ABANDONed Biotronik Lumax Smart SD 60/16 originally implanted December 28, 2011Coronary artery disease
Hypertension
Hyperlipidemia
Heart failure with recovered ejection fraction
Type 2 diabetes
TTE 06/11/2023: EF 50%, concentric remodeling LV, normal RV size and function, no significant valvular disease, basal/mid inferior wall, basal/mid inferolateral wall, basal inferoseptal segment, and apex are abnormal
Plan:
ICM status post single-chamber ICD 2011
- He has previously undergone ICD implantation for primary prevention of sudden cardiac related to infarct cardiomyopathy and heart failure.
- Current [place] heart association class III. LV function has improved but not normalized and there remains multiple segmental wall motion abnormalities.
-Patient received inappropriate ICD shock secondary to lead fracture; lead noise reproduced with arm motion
-Revision of ICD w/ Abandoned of failed right ventricular defibrillator/pacing lead with removal of ICD generator and implantation of new ICD generator with new ICD lead 05/25/24
-Post device change chest x-ray without pneumothorax and no acute cardiopulmonary process.
-Telemetry stable without further arrhythmias
-Continue current medical therapy with aspirin, statin, LETICIA, Aldactone, Jardiance, beta-daphney
-Outpatient incision check with EP arranged
-Usual follow-up with outpatient educational fundraising director Dr. Wu
-K 4.9, Mag 2.2
Outpt incision check arranged
Original Note:
Today's Communication / Plan
-
Continue usual GDMT
Outpt incision check arranged w/ DCA
stable from cardiac standpoint to be discharge
Impression / Plan
-
PCP: Jason Patel, DO
Cardiology: Darinel Wu MD
Beef Pluck Trimmer: Adeel Cramer
Assessment:
Ischemic cardiomyopathy
Biotronik Ilivia 7 VR-T (implant 2020) with Linox DF1 Lead (8 Fr, dual coil; implant 2011)
s/p gen change with ICD Biotronik Acticor 7 VR-T and RV Biotronik Pamira S DX 65/15 05/25/2024
ABANDONed Biotronik Lumax Smart SD 60/16 originally implanted December 28, 2011
Coronary artery disease
Hypertension
Hyperlipidemia
Heart failure with recovered ejection fraction
Type 2 diabetes
TTE 06/11/2023: EF 50%, concentric remodeling LV, normal RV size and function, no significant valvular disease, basal/mid inferior wall, basal/mid inferolateral wall, basal inferoseptal segment, and apex are abnormal
Plan:
ICM status post single-chamber ICD 2011
- He has previously undergone ICD implantation for primary prevention of sudden cardiac related to infarct cardiomyopathy and heart failure.
- Current [place] heart association class III. LV function has improved but not normalized and there remains multiple segmental wall motion abnormalities.
-Patient received inappropriate ICD shock secondary to lead fracture; lead noise reproduced with arm motion
-Revision of ICD w/ Abandoned of failed right ventricular defibrillator/pacing lead with removal of ICD generator and implantation of new ICD generator with new ICD lead 05/25/24
-Post device change chest x-ray without pneumothorax and no acute cardiopulmonary process.
-Telemetry stable without further arrhythmias
-Continue current medical therapy with aspirin, statin, LETICIA, Aldactone, Jardiance, beta-daphney
-Outpatient incision check with EP arranged
-Usual follow-up with outpatient educational fundraising director Dr. Wu
-K 4.9, Mag 2.2
Outpt incision check arranged
Progress Note - Banana Handler
Subjective
Date of Service: May 26, 2024
Patient seen and examined. Patient sitting on edge of bed reporting he feels well. Patient has been able to ambulate without difficulty. He reports he is eager to go home
Objective
Labs:
05/26/24 03:49
05/26/24 05:59
Labs
Hgb 17.9 g/dL (13.0-18.0) 05/26/24 03:49
Hct 51.0 % (39.0-52.0) 05/26/24 03:49
Plt Count 167 10^3/uL (130-400) 05/26/24 03:49
PT 12.5 Sec (11.4-14.6) 05/23/24 16:12
INR 0.90 05/23/24 16:12
APTT 27.9 Sec (23.4-35.0) 05/23/24 16:12
Sodium 135 mmol/L (135-145) 05/26/24 05:59
Potassium 4.9 mmol/L (3.5-5.1) 05/26/24 05:59
BUN 22 mg/dl (9-20) H 05/26/24 05:59
Creatinine 0.8 mg/dL (0.7-1.3) 05/26/24 05:59
Glucose 112 mg/dl (70-99) H 05/26/24 05:59
Troponins
05/23/24 05/24/24 05/24/24
21:20 04:35 12:38
Troponin I 0.054 H* 0.031 D Cancelled
Vital Signs and I&O:
Vital Signs
Temp Pulse Resp BP Pulse Ox
98.2 F 72 18 127/69 95
05/26/24 11:27 05/26/24 11:00 05/26/24 11:27 05/26/24 09:19 05/26/24 11:27
Vital Signs
Temp Pulse Resp BP Pulse Ox
98.2 F 72 18 127/69 95
05/26/24 11:27 05/26/24 11:00 05/26/24 11:27 05/26/24 09:19 05/26/24 11:27
Intake & Output
05/24/24 05/25/24 05/26/24 05/27/24
06:59 06:59 06:59 06:59
Intake Total 880 / 880 400 / 400 120 / 120
Balance 880 / 880 400 / 400 120 / 120
Physical Exam
Physical Exam
GEN: No distress, awake, Ox3, sitting on edge of bed
HEENT: supple, anicteric, mmm
LUNGS: CTA, no wheezes/rales
CV: Reg, S1/S2, no murmur
Chest: Left upper chest ICD incision well-approximated without evidence of hematoma or infection, Aquacel in place
ABD: soft, BS+, NT/ND
EXT: No edema, clubbing or cyanosis
NEURO: Gross non-focal
SKIN: No rash, warm, dry,
[2024-05-26 12:53] LABS: Glucose - Point of Care 133 mg/dl (70-99)
--- NOTE | 2024-05-26 13:32 | W.PN.HOSP.TC ---
Today's Communication/Plan
-
icd replacement
f/u icd check in 1 week
f/u cards in 1-2 weeks
f/u pcp in 1 week
f/u cbc in 3-5 days
Assessment / Plan
Assessment / Plan
#Inappropriate AICD shock
#Suspicion for fractured lead of AICD
-Will underlying rhythms that would necessitate AICD discharge, such as VT/VF
-Cardiology reviewed tracings, suspicion for lead fracture as etiology for inappropriate shock=
-Revision of ICD w/ Abandoned of failed right ventricular defibrillator/pacing lead with removal of ICD generator and implantation of new ICD generator with new ICD lead 05/25/24
-Post device change chest x-ray without pneumothorax and no acute cardiopulmonary process.
--Outpatient incision check with EP arranged
-Usual follow-up with outpatient sheepskin pickler Dr. Wu
#Leukocytosis
-Unclear cause, likely reactive from AICD discharge and replacement
-No fevers, no other obvious infectious etiology
-Monitor for fevers, follow-up CXR
-No indication for antibiotics as of now
-Trend CBC and monitor vitals -outpt
#HFrEF
#CAD s/p LCx PCI
#Multivessel CAD not amenable to PCI or CABG
-Ischemic cardiomyopathy with most recent LVEF 30%
-Home GDMT includes ASA, statin, ACEi, MRA, beta-daphney, SGLT2i
-Mechanical GDMT with AICD for persistent LVEF <35%
-Not currently on any standing loop diuretic regimen
-Appears euvolemic as of now
#IDDM with hyperglycemia
-No recent A1c on file, Home medications include Lantus 42 units nightly, sitagliptin and empagliflozin
-No known microvascular complications; suspect CAD history is related
-Will continue home medications and add ISS with Accu-Cheks
-Blood glucose goal 100-200, avoid hypoglycemia]
-f/u hgba1c - 7.6
#Hypertension
-Home medications include GDMT for heart failure as above
-No known hypertensive systemic disease
-May be related with CAD history
DVT prophylaxis: Subcutaneous heparin
Diet: Low-cholesterol
CODE STATUS: Full code
More than 30 minutes spent in discharge including
Final examination of the patient
Summarizing hospital stay
Instructions for continuing care to all relevant caregivers
Preparation of discharge records, prescriptions, and referral forms
Total time spent (36 in minutes):
Anticipated Discharge: Today
Subjective/Interval History
-
Date of Service: May 26, 2024
-removal of ICD generator and implantation of new ICD generator with new ICD lead 05/25/24
Objective Data
-
Labs:
Laboratory Results
05/26/24 05/26/24
03:49 05:59
WBC 14.9 H
Hgb 17.9
Hct 51.0
Plt Count 167
Sodium Cancelled 135
Potassium Cancelled 4.9
Chloride Cancelled 101
Carbon Dioxide Cancelled 20 L
BUN Cancelled 22 H
Creatinine Cancelled 0.8
Glucose Cancelled 112 H
Calcium Cancelled 9.5
Total Bilirubin Cancelled 0.9
AST Cancelled 25
ALT Cancelled 27
Alkaline Phosphatase Cancelled 78
Vital Signs:
Vital Signs
Temp Pulse Resp BP Pulse Ox
98.2 F 72 18 127/69 95
05/26/24 11:27 05/26/24 11:00 05/26/24 11:27 05/26/24 09:19 05/26/24 11:27
I&O
05/25/24 05/26/24 05/27/24
06:59 06:59 06:59
Intake Total 880 / 880 400 / 400 120 / 120
Balance 880 / 880 400 / 400 120 / 120
Review of Systems
-
History Source: Patient
All other systems: Not reviewed unless documented
Physical Exam
-
General: Well Developed, Well Nourished, No Apparent Distress and Comfortable
HEENT: Normocephalic, Atraumatic, Moist Mucous Membranes and Anicteric
Respiratory: Clear to Auscultation and Non Labored Respirations
Cardiac: Regular Rhythm and S1/S2; Negative Murmur, Rub, JVD or Gallop
GI: Soft, Nontender, Nondistended and Normal Bowel Sounds
Musculoskeletal: No Clubbing, No Cyanosis, No Edema and Normal Gait & Station
Skin: Warm, Dry, Normal Turgor and Other (Left upper chest ICD incision well-approximated without evidence of hematoma or infection, Aquacel in place); Negative Rash
Neuro: AO x 3 and Nonfocal/Grossly Intact
Psych: Calm
Data Reviewed
-
Diagnostic Radiology: Report Reviewed by me
Labs: Labs Reviewed by me
--- NOTE | 2024-05-26 13:50 | W.DS.TRANS ---
DC Summary - Rn Anesthesiology
-
Discharge Instructions:
Sleep Apnea Risk Low
Discharge Diagnosis/Procedures New RV lead placement
Diet Low Cholesterol,Low Fat,Diabetic, Carb
Controlled
Driving Restrictions No driving for 1 week
Blood Work cbc in 3-5 days with pcp
Instructions:
Stand-Alone Forms: DC Inst - Implanted Device
Changes to Home Medications: No
Discharge Medications:
DC Medications w/original date entered in [employer]
aspirin 81 mg chewable tablet 81 mg PO DAILY 12/27/11
atorvastatin 40 mg tablet 40 mg PO QPM 12/27/11
famotidine 40 mg tablet 40 mg PO DAILY 12/27/11
insulin glargine 100 unit/mL subcutaneous solution (Lantus U-100 Insulin) 30 units SC HS 12/27/11
lisinopril 2.5 mg tablet 5 mg PO DAILY 12/27/11
spironolactone 25 mg tablet 25 mg PO QPM 12/27/11
empagliflozin 25 mg tablet (Jardiance) 25 mg PO DAILY 07/06/20
ibuprofen 200 mg capsule (Advil Liqui-Gel) 200 mg PO Q6HPRN PRN pain 07/06/20
metoprolol succinate 25 mg tablet,extended release 24 hr 75 mg PO DAILY 07/06/20
glipizide 10 mg tablet 10 mg PO BID@0800,1700 05/23/24
Home Medication Changes
na
Pending Results: No
--- NOTE | 2024-05-26 14:55 | PTCARENOTE ---
removed sling and pressure dressing along with IV and tele. went over d/c instructions and answered all questions. walked patient out.
== END 2024-05-26 15:01 | disposition home or self-care (01) | DRG 277 ==
LOC: IVU 18:16
PROVIDERS: Internal Medicine Cardiovascular Disease; ADMITTING PHYSICIAN Internal Medicine; ATTENDING PHYSICIAN Internal Medicine; CONSULT PHYSICIAN Internal Medicine Cardiovascular Disease; EMERGENCY PHYSICIAN Emergency Medicine; FAMILY PHYSICIAN Family Medicine
PROC: 02HK3KZ Insertion of Defibrillator Lead into Right Ventricle, Percutaneous Approach (ICD-10-PCS; 2024-05-25)
PROC: 0JPT0PZ Removal of Cardiac Rhythm Related Device from Trunk Subcutaneous Tissue and Fascia, Open Approach (ICD-10-PCS; 2024-05-25)
PROC: 0JH608Z Insertion of Defibrillator Generator into Chest Subcutaneous Tissue and Fascia, Open Approach (ICD-10-PCS; 2024-05-25)
DX: T82.110A Breakdown (mechanical) of cardiac electrode, initial encounter (principal); I50.22 Chronic systolic (congestive) heart failure; D72.829 Elevated white blood cell count, unspecified; E11.65 Type 2 diabetes mellitus with hyperglycemia; F17.200 Nicotine dependence, unspecified, uncomplicated; I11.0 Hypertensive heart disease with heart failure; I25.10 Atherosclerotic heart disease of native coronary artery without angina pectoris; I25.5 Ischemic cardiomyopathy; Z79.4 Long term (current) use of insulin; Z79.84 Long term (current) use of oral hypoglycemic drugs; Z79.899 Other long term (current) drug therapy; Z79.82 Long term (current) use of aspirin; Z98.61 Coronary angioplasty status; Y71.2 Prosthetic and other implants, materials and accessory cardiovascular devices associated with adverse incidents; Y83.1 Surgical operation with implant of artificial internal device as the cause of abnormal reaction of the patient, or of later complication, without mention of misadventure at the time of the procedure
CPT/HCPCS: 33241; 33249; 71045; 71046; 80048; 80053; 82962; 83036; 83735; 84439; 84443; 84484; 85025; 85027; 85610; 85730; 93005; 93289; 99285; C1892; Q9967